=== PATIENT | female | born 1950 | race Caucasian/White ===

== ENCOUNTER 2016-12-24 17:08 | Emergency (ER) | payer OTHER ==
[~2016-12-24] VITALS: Ht 162.6 cm; Wt 81.6 kg
[~2016-12-24 17:08] MED LIST: ALPR0.2550; ALPR0.5T7 PO; ATEN25TA PO; CYAN10006 IJ; CYCL10TA9 PO; EST.625T PO; FENO134C PO; FEXO1TAB42; HYDR25TA4 PO; METF500T4 PO; METO10TA3 PO; NAPR-243 PO; OMEP2.5S; OMEP20CA12 PO; OXYC-12; OXYC-202 PO; OXYC-32; PHEN-483 PO; POTA10TA10 PO; SPIR25TA3 PO; [UNRECOGNIZED DRUG - CODE]; premarin
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
[2016-12-24] MEDS ORDERED: Flexeril PO (17:52)
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
[2016-12-24 18:10] VITALS: BP 135/74
== END 2016-12-24 18:11 | disposition home or self-care (01) ==
LOC: EDUNIT# 17:08 → ER 17:09
DX: S13.4XXA Sprain of ligaments of cervical spine, initial encounter (principal); S40.012A Contusion of left shoulder, initial encounter; S70.02XA Contusion of left hip, initial encounter; E11.9 Type 2 diabetes mellitus without complications; Z79.84 Long term (current) use of oral hypoglycemic drugs; Z79.899 Other long term (current) drug therapy; V43.52XA Car driver injured in collision with other type car in traffic accident, initial encounter; Y92.414 Local residential or business street as the place of occurrence of the external cause; Y99.8 Other external cause status
CPT/HCPCS: 70450; 71010; 72125; 73030; 73502

== ENCOUNTER → 2017-01-14 | Outpatient (CLI) | payer OTHER ==
[~2017-01-14] MED LIST changes: +Flexeril PO
--- NOTE | 2017-01-14 12:57 | Diagnostic Imaging Report ---
PROCEDURE: CT right upper extremity without contrast. TECHNIQUE: Multiple contiguous axial images were obtained through the right upper extremity without the use of intravenous contrast. Sagittal and coronal reformations were then performed. INDICATION: Lesion seen in the proximal right humerus on chest x-ray from 12/24/2016. FINDINGS: In the proximal humerus metadiaphysis junction there is a medullary lesion associated with chondroid type calcifications in favor of an underlying enchondroma. No significant soft tissue component is seen. There is no bone destruction of the surrounding tissue and there is no thinning of the cortex. The proximal and distal joints appear grossly unremarkable. No fracture or dislocation is seen. There is mild degenerative changes involving the AC joint. 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 A bone infarct is another differential possibility. No aggressive features seen. Dictated by: Dictated on workstation # [id number]
== END ==
LOC: RAD 11:07
PROVIDERS: ATTEND Internal Medicine
DX: D16.01 Benign neoplasm of scapula and long bones of right upper limb (principal)
CPT/HCPCS: 73200

== ENCOUNTER 2017-03-07 08:16 | Outpatient (CLI) | payer OTHER ==
[~2017-03-07] VITALS: Ht 162.6 cm; Wt 84.8 kg
[2017-03-07] MEDS ORDERED: BUPIVACAINE 0.25% 30 ML (SENSORCAINE) VIAL ONE (08:27)
[2017-03-07] MEDS ORDERED: TRIAMCINOLONE ACET (KENALOG-40) 40 MG/ML 1 ML VIAL ONE (08:27)
[2017-03-07 08:35] VITALS: BP 116/73
[2017-03-07 09:11] VITALS: BP 113/74
--- NOTE | 2017-03-07 12:29 | Pain Medicine-Procedure ---
Procedure Pre-Op/Post-Op Diagnosis Diagnosis: disc disorder with radiculopathy, lumbar Indications for Operation Low back pain Attending Surgeon Audrey Procedure Date of Service: Mar 07, 2017 Procedure: Lumbar Epidural Steroid Injection at the L5-S1 level under Fluoroscopic Guidance Procedure: Patient was identified in the holding area. After risks, benefits, and alternatives were discussed with the patient, informed consent was obtained. Patient was brought to the fluoroscopy suite and placed prone on the procedure room table. A time out was performed. Vital signs were monitored throughout the procedure. The patients low back was prepped and draped in the usual sterile fashion. The patients skin was anesthetized using 2% Lidocaine. A Tuohy needle was inserted and advanced to the L5-S1 epidural space under fluoroscopic guidance using the loss of resistance technique and intermittent projection of fluoroscopy. There was no paresthesia with needle placement. The needle position was confirmed in both the AP and lateral view. After negative aspiration 2ml of contrast was injected under live fluoroscopy which showed good spread of the contrast in the epidural space at the appropriate level, there was no intravascular or subarachnoid spread. Again, after negative aspiration for heme or CSF, 2 ml of 0.25% Bupivicaine, 2ml of preservative free normal saline, and 80mg of Kenalog was injected. The needle was removed and a sterile bandage was placed and the patient was transferred to the recovery area in stable condition. After a brief period of observation, patient was discharged to home with no new neurological deficits and no apparent complications. Complications None FÉLIX ROJAS MD Mar 07, 2017 12:29 pm
== END 2017-03-07 09:12 | disposition home or self-care (01) ==
LOC: CARD 08:16
PROVIDERS: ATTEND Pain Medicine Pain Medicine
DX: M51.16 Intervertebral disc disorders with radiculopathy, lumbar region (principal); Z79.84 Long term (current) use of oral hypoglycemic drugs; Z79.899 Other long term (current) drug therapy
CPT/HCPCS: 62323

== ENCOUNTER 2017-04-11 07:56 | Outpatient (CLI) | payer OTHER ==
[~2017-04-11] VITALS: Ht 162.6 cm; Wt 83.5 kg
[2017-04-11] MEDS ORDERED: TRIAMCINOLONE ACET (KENALOG-40) 40 MG/ML 1 ML VIAL ONE (08:14)
[2017-04-11] MEDS ORDERED: BUPIVACAINE 0.25% 30 ML (SENSORCAINE) VIAL ONE (08:14)
[2017-04-11 08:34] VITALS: BP 126/82
[2017-04-11 08:51] VITALS: BP 123/76
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
== END 2017-04-11 08:53 | disposition home or self-care (01) ==
LOC: CARD 07:56
PROVIDERS: ATTEND Pain Medicine Pain Medicine
DX: M51.16 Intervertebral disc disorders with radiculopathy, lumbar region (principal); M47.816 Spondylosis without myelopathy or radiculopathy, lumbar region; Z79.899 Other long term (current) drug therapy; Z79.84 Long term (current) use of oral hypoglycemic drugs
CPT/HCPCS: 62323

== ENCOUNTER → 2017-12-23 | Outpatient (CLI) | payer MEDICARE, OTHER ==
--- NOTE | 2017-12-23 16:26 | Diagnostic Imaging Report ---
INDICATION: Routine screening. COMPARISON: 11/11/2016 and 02/08/2014. TECHNIQUE: Screening digital mammography was performed bilaterally with a Computer Aided Detection (CAD) system. FINDINGS: Moderate density is noted bilaterally. The parenchymal pattern is stable. No dominant mass or malignant appearing microcalcifications are seen. The axillae are unremarkable. IMPRESSION: No mammographic features suspicious for malignancy are identified. ACR BI-RADS Category 1: Negative. Result letter will be mailed to the patient. Note: At least 10% of breast cancer is not imaged by mammography. Dictated by: Dictated on workstation # [id number]
== END ==
LOC: RAD 13:55
PROVIDERS: ATTEND Nurse Practitioner Family
DX: Z12.31 Encounter for screening mammogram for malignant neoplasm of breast (principal)
CPT/HCPCS: 77067

== ENCOUNTER → 2018-03-03 | Outpatient (CLI) | payer MEDICARE, OTHER ==
--- NOTE | 2018-03-03 12:57 | Diagnostic Imaging Report ---
INDICATION: Fall. Back pain. COMPARISON: None FINDINGS: Frontal and lateral views of the lumbar spine were obtained. Alignment and vertebral heights are maintained. There is no fracture or destructive process. Mild multilevel degenerative disease is noted in the lumbar spine. Flexion and extension views show no abnormal subluxation. Limited views of the abdomen demonstrate nonobstructive bowel gas pattern. IMPRESSION: 1. No acute fracture or dislocation of the lumbar spine. 2. Mild multilevel degenerative changes. Dictated by: Dictated on workstation # [id number]
== END ==
LOC: RAD 12:11
PROVIDERS: ATTEND Anesthesiology Pain Medicine
DX: M47.816 Spondylosis without myelopathy or radiculopathy, lumbar region (principal); M51.36 Other intervertebral disc degeneration, lumbar region; W19.XXXA Unspecified fall, initial encounter
CPT/HCPCS: 72110

== ENCOUNTER → 2019-02-03 | Outpatient (CLI) | payer MEDICARE, OTHER ==
[~2019-02-03] MED LIST changes: +METF-397 PO; -METF500T4 PO; -OXYC-202 PO; +OXYC1TAB12 PO; -SPIR25TA3 PO; +SPIR25TA5 PO
--- NOTE | 2019-02-04 20:12 | Diagnostic Imaging Report ---
INDICATION: Routine screening. Comparison is made with prior mammograms from 12/23/2017 and 11/11/2016. 2-D and 3-D bilateral screening mammography was performed with Computer Aided Detection (CAD) system. FINDINGS: Scattered fibroglandular densities are identified bilaterally. The density in the medial aspect of the right breast anterior depth appears more prominent than prior mammograms. This is best seen on the CC view. This may be inferiorly located on the MLO view. Additional views are recommended. No other suspicious mass or malignant-appearing microcalcifications are seen. Axillae are unremarkable. IMPRESSION: Right breast density. Additional views are recommended for further evaluation. ACR BI-RADS Category 0: Incomplete. (Needs additional imaging evaluation). Result letter will be mailed to the patient. Note: At least 10% of breast cancer is not imaged by mammography. Dictated on workstation # [id number]
== END ==
LOC: RAD 14:39
PROVIDERS: ATTEND Internal Medicine
DX: Z12.31 Encounter for screening mammogram for malignant neoplasm of breast (principal)
CPT/HCPCS: 77067

== ENCOUNTER → 2019-02-17 | Outpatient (CLI) | payer MEDICARE, OTHER ==
--- NOTE | 2019-02-17 14:20 | Diagnostic Imaging Report ---
INDICATION: Right breast density. This study is performed for further evaluation. COMPARISON: Correlation is made with the diagnostic mammogram from earlier this same day and the screening mammogram from 02/03/2019. FINDINGS: Sonographic interrogation of the inner right breast was performed. No discrete mass is identified. There appears to be some heterogeneous fibroglandular tissue at this location. No fluid collection or cyst is seen. IMPRESSION: No suspicious sonographic abnormality is seen. Even so, a followup right mammogram and right breast ultrasound in 6 months is recommended to show continued stability. ACR BI-RADS Category 3: Probably benign findings. Dictated by: Dictated on workstation # [id number]
--- NOTE | 2019-02-17 14:22 | Diagnostic Imaging Report ---
INDICATION: Right breast density. Patient presents for additional views. COMPARISON: Screening study from 02/03/2019. TECHNIQUE: Unilateral right 2D and 3D diagnostic mammography was performed including spot compression CC and ML views as well as rolled CC and conventional 90 degree lateral views. FINDINGS: The additional views demonstrate persistent density in the medial right breast. No suspicious calcifications are seen. No discrete mass is identified. This may represent fibroglandular tissue. IMPRESSION: Additional views show some mild residual density in the medial right breast, likely fibroglandular tissue. Even so, sonographic interrogation of this area is recommended and will be performed today. ACR BI-RADS Category 0: Incomplete. (Needs additional imaging evaluation). Result letter will be mailed to the patient. Note: At least 10% of breast cancer is not imaged by mammography. Dictated by: Dictated on workstation # [id number]
== END ==
LOC: RAD 12:38
PROVIDERS: ATTEND Internal Medicine
DX: N64.59 Other signs and symptoms in breast (principal); R92.2 Inconclusive mammogram

== ENCOUNTER → 2019-08-16 | Outpatient (CLI) | payer MEDICARE, OTHER ==
[~2019-08-16] MED LIST changes: +ATOR10TA66 PO; +CYAN-41 IJ; -CYAN10006 IJ; +ESTR0.62 PO; +NALT1TAB PO; -OMEP20CA12 PO; +OMEP20CA13 PO; +VNL75T PO
--- NOTE | 2019-08-16 15:55 | Diagnostic Imaging Report ---
INDICATION: Right breast density. Patient presents for a 6 month followup. COMPARISON: 02/03/2019 and 12/23/2017. TECHNIQUE: Unilateral right 2D and 3D diagnostic mammography was performed with CAD. FINDINGS: The density noted in the medial aspect of the right breast at anterior depth appears stable. No new mass or malignant appearing microcalcification are seen. The right axilla is unremarkable. IMPRESSION: Stable right mammogram. An additional 6 month followup is recommended to show continued stability. ACR BI-RADS Category 3: Probably benign findings. Result letter will be mailed to the patient. Note: At least 10% of breast cancer is not imaged by mammography. Dictated by: Dictated on workstation # [id number]
== END ==
LOC: RAD 14:13
PROVIDERS: ATTEND Internal Medicine
DX: N64.59 Other signs and symptoms in breast (principal); R92.2 Inconclusive mammogram

== ENCOUNTER 2019-08-18 05:40 | Outpatient (CLI) | payer MEDICARE, OTHER ==
[~2019-08-18] VITALS: Ht 162.5 cm; Wt 95.4 kg
[~2019-08-18 05:40] MED LIST changes: -ATOR10TA66 PO; -ESTR0.62 PO; -NALT1TAB PO; -VNL75T PO
[2019-08-19] MEDS ORDERED: NALT1TAB PO (10:04)
[2019-08-19] MEDS ORDERED: ESTR0.62 PO (10:04)
[2019-08-19] MEDS ORDERED: ATOR10TA66 PO (10:04)
[2019-08-19] MEDS ORDERED: VNL75T PO (10:04)
== END 2019-08-19 10:06 | disposition home or self-care (01) ==
LOC: PREOP 05:40
PROVIDERS: ATTEND Internal Medicine
DX: Z01.818 Encounter for other preprocedural examination (principal)

== ENCOUNTER 2019-08-20 08:59 | Day surgery (SDC) | payer MEDICARE, OTHER ==
[2019-08-20] VITALS (13 sets, daily range): BP systolic 116–142; BP diastolic 59–85
[~2019-08-20 08:59] MED LIST changes: +ATOR10TA66 PO; +D5 LR IV SOLUTION 1,000 ML IV ONE; +ESTR0.62 PO; +NALT1TAB PO; +VNL75T PO
[2019-08-20] MEDS ORDERED: D5 LR IV SOLUTION 1,000 ML IV STA (09:27)
[2019-08-20] MEDS ORDERED: fentaNYL INJECTION 100 MCG/2 ML AMP IVP ONE (09:30)
[2019-08-20] MEDS ORDERED: LIDOCAINE JELLY 2% 6 ML SYRINGE MM PRN (09:30)
[2019-08-20] MEDS ORDERED: MIDAZOLAM 2 MG/2 ML (VERSED) VIAL IVP ONE (09:30)
[2019-08-20] MEDS ORDERED: fentaNYL INJECTION 100 MCG/2 ML AMP ONE (09:43)
[2019-08-20] MEDS ORDERED: LIDOCAINE JELLY 2% 6 ML SYRINGE ONE (09:43)
[2019-08-20] MEDS ORDERED: MIDAZOLAM 2 MG/2 ML (VERSED) VIAL ONE ×2 (09:44→09:53)
--- NOTE | 2019-08-20 09:56 | Pre-Op Note & Conscious Sedat ---
Pre-Operative Progress Note H&P Reviewed The H&P was reviewed, patient examined and no changes noted. Date H&P Reviewed: Aug 20, 2019 Time H&P Reviewed: 09:15 Conscious Sedation Pre-Proced ASA Score 2 For ASA 3 and 4: Consider anesthesia and medical clearance. Also, for patients with a history of failed moderate sedation consider anesthesia. Airway Lungs Heart ASA score ASA 1: a normal healthy patient ASA 2: a patient with a mild systemic disease (mid diabetes, controlled hypertension, obesity ASA 3: a patient with a severe systemic disease that limits activity (angina, COPD, prior Myocardial infarction) ASA 4: a patient with an incapacitating disease that is a constant threat to life (CHF, renal failure) ASA 5: a moribund patient not expected to survive 24 hrs. (ruptured aneurysm) ASA 6: a declared brain- patient whose organs are being harvested. For emergent operations, add the letter E after the classification Mallampati Classification Grade 3 Sedation Plan Analgesia, Amnesia, Plan communicated to team members, Discussed options with patient/fam, Discussed risks with patient/fam The patient is an appropriate candidate to undergo the planned procedure, sedation, and anesthesia. The patient immediately re-assessed prior to indication. JAIME BILLY MD Aug 20, 2019 09:56
--- NOTE | 2019-08-20 16:03 | OPERATIVE REPORT ---
DATE OF SERVICE: 08/20/2019 COLONOSCOPY SUMMARY INDICATION FOR THE PROCEDURE: Surveillance colonoscopy, history of colon polyps. DESCRIPTION OF THE PROCEDURE: The patient was placed in the left lateral decubitus position. Prior to undergoing colonoscopy, digital rectal evaluation was performed. Anal sphincter tone was normal. The perianal reflex was intact. Digital evaluation of the rectum was compatible with small anterior rectocele. No other abnormalities were noted on digital inspection of the anal canal or distal rectal vault. The colonoscope was then inserted into the rectum and under direct visualization advanced to the cecum. The cecum was identified by identification of the ileocecal valve and cecal strap. Photographic documentation was obtained. Careful inspection was made as the colonoscope was withdrawn. Quality of prep was good. FINDINGS: There was no evidence for internal or external hemorrhoids and the rectum, sigmoid colon, descending colon, transverse colon, ascending colon and cecum were unremarkable. No evidence for neoplasia, diverticular disease or inflammatory change was noted. ASSESSMENT AND PLAN: Normal colonoscopy to the cecum. We would advocate consideration for repeat surveillance colonoscopy in five years. Digital evaluation of the rectum was compatible with a small anterior rectocele. Job ID: [id number] DocumentID: [id number] Dictated Date: 08/20/2019 10:30:34 Instrument Engineer Date: 08/20/2019 16:02:15 Dictated By: JAIME BILLY MD
--- NOTE | 2019-08-26 08:54 | HISTORY AND PHYSICAL ---
DATE OF SERVICE: COLONOSCOPY HISTORY AND PHYSICAL HISTORY OF PRESENT ILLNESS: The patient is a 69-year-old white female referred by Dr. Archer for diagnostic colonoscopy due to past history of colon polyps. She last underwent colonoscopy three years ago, at which time she had 2 adenomas removed from the mid ascending colon. For this reason, she is being referred for repeat diagnostic colonoscopy. She reports no change in bowel habit. Denies abdominal pain and has noted no bright red blood per rectum or melena. She denies any change in health history. Has had no surgery in the last 3 years. PAST MEDICAL HISTORY: Significant for moderate hiatal hernia with erosive esophagitis that she reports is controlled on current proton pump inhibitor therapy. She has acquired spinal stenosis with chronic back pain. PAST SURGICAL HISTORY: Distant past history of cholecystectomy, appendectomy and total abdominal hysterectomy and bilateral salpingo-oophorectomy for reported benign reasons. FAMILY HISTORY: Mother at the age of 73 secondary to kidney cancer. Father at age 55 secondary to complications of heart disease. She is not aware of any family history for colon cancer or other GI tract malignancy. SOCIAL HISTORY: She is , retired, quit smoking over 18 years ago with a previous [id number] smoking history, only rare alcohol intake. MEDICATIONS: Omeprazole 20 mg daily, spironolactone 25 mg daily, hydrochlorothiazide 25 mg daily, metoclopramide 10 mg q.6 p.r.n., reflux or nausea, phentermine recently started 37.5 mg daily, B12 injections monthly and fenofibrate 134 mg daily, Premarin 0.625 mg daily, atenolol 25 mg daily, atorvastatin unknown dose, venlafaxine unknown dose, p.r.n. Percocet 5/325 and alprazolam 0.25 q.8 p.r.n. PHYSICAL EXAMINATION: GENERAL: Reveals a pleasant white female, who did not appear to be in acute distress. VITAL SIGNS: Weight 218 pounds, was up 40 pounds over the past three years. Blood pressure 112/80. HEENT: Unremarkable. She has a Mallampati class 3 pharyngeal configuration. CHEST: Clear to auscultation. CARDIOVASCULAR: Reveals a regular rate and rhythm without murmur, S3 or S4. ABDOMEN: Soft, supple without mass, organomegaly or tenderness. EXTREMITIES: Reveal no cyanosis, clubbing or edema. ASSESSMENT: The patient was set up for surveillance colonoscopy on 08/20. Prep instructions were given and questions were answered. I thank you for the referral of this pleasant lady. Job ID: [id number] DocumentID: [id number] Dictated Date: 08/12/2019 15:48:53 Supervisor Brine Date: Dictated By: JAIME BILLY MD MTDD
== END 2019-08-20 11:30 | disposition home or self-care (01) ==
LOC: ENDO 08:59
PROVIDERS: ATTEND Internal Medicine
DX: Z12.11 Encounter for screening for malignant neoplasm of colon (principal); G89.29 Other chronic pain; M54.9 Dorsalgia, unspecified; K22.10 Ulcer of esophagus without bleeding; K44.9 Diaphragmatic hernia without obstruction or gangrene; Z90.49 Acquired absence of other specified parts of digestive tract; Z86.010 Personal history of colon polyps; Z90.710 Acquired absence of both cervix and uterus; Z90.722 Acquired absence of ovaries, bilateral; Z90.79 Acquired absence of other genital organ(s); Z80.51 Family history of malignant neoplasm of kidney; Z82.49 Family history of ischemic heart disease and other diseases of the circulatory system; Z87.891 Personal history of nicotine dependence; Z79.899 Other long term (current) drug therapy

== ENCOUNTER → 2020-02-09 | Outpatient (CLI) | payer MEDICARE, OTHER ==
[~2020-02-09] MED LIST changes: -D5 LR IV SOLUTION 1,000 ML IV ONE; -OMEP20CA13 PO; +OMEP20CA18 PO
--- NOTE | 2020-02-09 15:35 | Diagnostic Imaging Report ---
INDICATION: Fall with injury to the right breast. Patient now has a lump in the area of injury. COMPARISON: Correlation is made with diagnostic mammogram earlier the same day. FINDINGS: Sonography interrogation of the area of lump in the right breast was performed. This corresponds to the 3:00 location, 7 cm from the nipple. There is a mixed echogenicity area at this location but primarily hyperechoic. This measures 2.5 x 3.0 x 0.9 cm. No internal vascularity is seen. This is most likely representing hematoma. No other abnormality has been detected. IMPRESSION: Probable hematoma at the area of palpable abnormality at the 3:00 location of the right breast, 7 cm from from the nipple. Patient does report recent trauma. A follow-up right breast ultrasound in 2-3 months is recommended to confirm stability. Dictated by: Dictated on workstation # [id number]
--- NOTE | 2020-02-09 17:04 | Diagnostic Imaging Report ---
INDICATION: Palpable lump in the medial right breast. Patient states she fell approximately 5 weeks ago and felt the lump shortly after that. COMPARISON: Correlation is made with the prior mammograms from 08/16/2019, 02/17/2019, and 12/23/2017. TECHNIQUE: 2D and 3D bilateral diagnostic mammography was performed with CAD. FINDINGS: Scattered fibroglandular densities are noted bilaterally. A BB marker was placed at the area of palpable abnormality in the medial right breast. There is some density at this location which appears similar to the prior mammograms. No new mass or malignant appearing microcalcifications are seen. The left breast is stable. The axillae are unremarkable. IMPRESSION: Stable bilateral mammograms. The medial right breast density previously followed appears stable. This is in a similar location as the area of palpable abnormality. Further evaluation of the area of palpable abnormality with ultrasound is recommended and will be performed today. ACR BI-RADS Category 0: Incomplete. (Needs additional imaging evaluation). Result letter will be mailed to the patient. Note: At least 10% of breast cancer is not imaged by mammography. Dictated by: Dictated on workstation # [id number]
== END ==
LOC: RAD 12:51
PROVIDERS: ATTEND Internal Medicine
DX: S29.9XXA Unspecified injury of thorax, initial encounter (principal); N60.01 Solitary cyst of right breast; N63.10 Unspecified lump in the right breast, unspecified quadrant; W19.XXXA Unspecified fall, initial encounter
CPT/HCPCS: 77066

== ENCOUNTER → 2020-04-20 | Outpatient (CLI) | payer MEDICARE, OTHER ==
--- NOTE | 2020-04-20 13:53 | Diagnostic Imaging Report ---
PROCEDURE: CT head without contrast. TECHNIQUE: Multiple contiguous axial images were obtained through the brain without the use of intravenous contrast. Auto Exposure Controls were utilized during the CT exam to meet ALARA standards for radiation dose reduction. INDICATION: Dizziness. Falling a lot. COMPARISON: 12/24/2016. FINDINGS: No large acute territorial ischemia, mass, or hemorrhage. No midline shift or mass effect. The ventricles, cortical sulci, and basilar cisterns are patent and unremarkable. The calvarium is intact. The visualized paranasal sinuses are clear. IMPRESSION: 1. No large acute territorial ischemia, mass, or hemorrhage. Dictated by: Dictated on workstation # [id number]
== END ==
LOC: RAD 13:08
PROVIDERS: ATTEND Internal Medicine
DX: F11.20 Opioid dependence, uncomplicated (principal); E66.8 Other obesity; E53.8 Deficiency of other specified B group vitamins; R29.6 Repeated falls; R42 Dizziness and giddiness; R73.03 Prediabetes; Z68.38 Body mass index [BMI] 38.0-38.9, adult
CPT/HCPCS: 70450

== ENCOUNTER → 2020-06-06 | Outpatient (CLI) | payer MEDICARE, OTHER ==
--- NOTE | 2020-06-06 14:40 | Diagnostic Imaging Report ---
INDICATION: Right breast hematoma status post right breast injury. This study is performed for followup. COMPARISON: 02/09/2020. TECHNIQUE: Sonographic interrogation of the right breast 3 o'clock location 7 cm from the nipple was performed. FINDINGS: The previously noted echogenic focus, suggestive of a hematoma, has resolved. No sonographic abnormality is identified on today's study. No solid or cystic mass is detected. IMPRESSION: Resolution of the probable hematoma at the 3 o'clock location of the right breast 7 cm from the nipple when compared with the examination of 4 months earlier. The patient may return to routine annual screening mammography. ACR BI-RADS Category 1: Negative. Dictated by: Dictated on workstation # [id number]
== END ==
LOC: RAD 13:14
PROVIDERS: ATTEND Internal Medicine
DX: S20.01XA Contusion of right breast, initial encounter (principal)

== ENCOUNTER → 2021-06-12 | Outpatient (CLI) | payer MEDICARE, OTHER ==
[~2021-06-12] MED LIST changes: -METO10TA3 PO; +MTC10T PO
--- NOTE | 2021-06-12 19:29 | Diagnostic Imaging Report ---
INDICATION: Routine screening. COMPARISON is made with prior mammograms from 02/09/2020 and 08/16/2019. 2-D and 3-D bilateral screening mammography was performed with CAD. Scattered fibroglandular densities are identified bilaterally. The parenchymal pattern is stable. No mass or malignant appearing microcalcifications are seen. Axillae are unremarkable. IMPRESSION: BI-RADS Category 1 No mammographic features suspicious for malignancy are identified. ACR BI-RADS Category 1: Negative. Result letter will be mailed to the patient. Note: At least 10% of breast cancer is not imaged by mammography. Dictated by: Dictated on workstation # [id number]
== END ==
LOC: RAD 13:30
PROVIDERS: ATTEND Internal Medicine
DX: Z12.31 Encounter for screening mammogram for malignant neoplasm of breast (principal)
CPT/HCPCS: 77063; 77067

== ENCOUNTER → 2021-10-31 | Outpatient (CLI) | payer MEDICARE, OTHER ==
--- NOTE | 2021-10-31 17:02 | Diagnostic Imaging Report ---
INDICATION: Knee pain. 3 views left knee were obtained. FINDINGS: There are moderate degenerative changes in the left knee. This includes joint space narrowing and marginal osteophytosis. No fracture dislocation. No joint effusion. Soft tissues are unremarkable IMPRESSION: Moderate degenerative changes otherwise unremarkable Dictated by: Dictated on workstation # [id number]
== END ==
LOC: RAD 15:00
PROVIDERS: ATTEND Internal Medicine
DX: M17.12 Unilateral primary osteoarthritis, left knee (principal); E66.9 Obesity, unspecified; R73.03 Prediabetes
CPT/HCPCS: 73562

== ENCOUNTER → 2022-07-15 | Outpatient (CLI) | payer MEDICARE, OTHER ==
[~2022-07-15] MED LIST changes: -FENO134C PO; +FENO134C21 PO
--- NOTE | 2022-07-16 13:26 | Diagnostic Imaging Report ---
INDICATION: Routine screening. COMPARISON: 06/12/2021 and 02/09/2020. TECHNIQUE: 2D and 3D bilateral screening mammography was performed with CAD. FINDINGS: Scattered fibroglandular densities are identified bilaterally. The overall parenchymal pattern appears stable. No mass or malignant-appearing microcalcifications are identified. The axillae are unremarkable. IMPRESSION: No mammographic features suspicious for malignancy are identified. ACR BI-RADS Category 1: Negative. Result letter will be mailed to the patient. Note: At least 10% of breast cancer is not imaged by mammography. Dictated by: Dictated on workstation # [id number]
== END ==
LOC: RAD 14:20
PROVIDERS: ATTEND Internal Medicine
DX: Z12.31 Encounter for screening mammogram for malignant neoplasm of breast (principal)
CPT/HCPCS: 77063; 77067

== ENCOUNTER → 2022-10-29 | Outpatient (CLI) | payer MEDICARE, OTHER | LOC: CARD 11:31 | PROVIDERS: ATTEND Internal Medicine | DX: R00.1 Bradycardia, unspecified (principal) | CPT/HCPCS: 93225; 93226 ==

== ENCOUNTER → 2023-07-18 | Outpatient (CLI) | payer MEDICARE, OTHER ==
--- NOTE | 2023-07-21 11:33 | Diagnostic Imaging Report ---
INDICATION: Routine screening. Comparison is made with prior mammogram from 07/15/2022 and 06/12/2021. 2-D and 3-D bilateral screening mammography was performed with CAD. Scattered fibroglandular densities are identified bilaterally. The parenchymal pattern is stable. No mass or malignant-appearing microcalcifications are seen. Axillae are unremarkable. IMPRESSION: No mammographic features suspicious for malignancy are identified. ACR BI-RADS Category 1: Negative. Result letter will be mailed to the patient. Note: At least 10% of breast cancer is not imaged by mammography. BI-RADS Category 1 Dictated by: Dictated on workstation # [id number]
== END ==
LOC: RAD 15:45
PROVIDERS: ATTEND Internal Medicine
DX: Z12.31 Encounter for screening mammogram for malignant neoplasm of breast (principal)
CPT/HCPCS: 77063; 77067